=== PATIENT | male | born 1955 | race Caucasian/White ===

== ENCOUNTER 2019-11-20 03:50 | Emergency (ER) | payer OTHER ==
[~2019-11-20] VITALS: Ht 162.6 cm; Wt 74.8 kg
[~2019-11-20 03:50] MED LIST: Vistaril50 MG PO
== END 2019-11-20 04:01 | disposition home or self-care (01) ==
LOC: ER 03:50
DX: F22 Delusional disorders (principal)
CPT/HCPCS: 99283

== ENCOUNTER 2019-11-20 07:27 | Observation (INO) | payer OTHER ==
[~2019-11-20] VITALS: Ht 182.9 cm; Wt 68.0 kg
[2019-11-20 08:13] LABS: BASOPHILS ABSOLUTE AUTO 0.06 K/mm3 (0.00-0.23); BASOPHILS PERCENT AUTO 1 % (0-2); EOSINOPHILS ABSOLUTE AUTO 0.03 K/mm3 (0.00-0.68); EOSINOPHILS PERCENT AUTO 0 % (0-6); Hematocrit 42.8 % (37.0-53.0); Hemoglobin 14.4 g/dL (13.5-17.5); IMMATURE GRAN ABSOLUTE AUTO 0.04 K/mm3 (0.00-0.10); IMMATURE GRAN PERCENT AUTO 0 % (0-1); LYMPHOCYTES ABSOLUTE AUTO 2.51 K/mm3 (0.84-5.20); LYMPHOCYTES PERCENT AUTO 20 % (21-46); MONOCYTES ABSOLUTE AUTO 1.17 K/mm3 (0.16-1.47); MONOCYTES PERCENT AUTO 9 % (4-13); Mean Corpuscular HGB 31.4 pg (26.0-34.0); Mean Corpuscular HGB Conc 33.6 g/dL (31.5-36.5); Mean Corpuscular Volume 93 fL (80-100); NEUTROPHILS ABSOLUTE AUTO 8.66 K/mm3 (1.96-9.15); NEUTROPHILS PERCENT AUTO 70 % (41-73); Platelet Count 212 K/mm3 (150-400); RDW Coefficient Variation 12.2 % (11.7-14.2); RDW Standard Deviation 42.2 fL (35.1-46.3); Red Blood Cell Count 4.59 M/mm3 (4.30-5.90); White Blood Cell Count 12.47 K/mm3 (4.00-11.30)
[2019-11-20 08:33] LABS: Salicylate <1.7 mg/dL (2.8-20.0)
[2019-11-20 08:34] LABS: Alanine Aminotransfer (ALT/SGP 41 U/L (12-78); Albumin, Blood 4.6 g/dL (3.4-5.0); Albumin/Globulin Ratio 1.4 (0.8-1.8); Alk Phos 99 U/L (50-136); Anion Gap 10 mmol/L (6-16); Aspartate Aminotrans (AST/SGOT 62 U/L (12-37); Bilirubin, Total 1.1 mg/dL (0.1-1.0); Blood Urea Nitrogen 14 mg/dL (8-24); Bun/Creatinine Ratio 15.7 (12.0-20.0); CO2, Blood 24 mmol/L (21-32); Calcium, Blood 9.1 mg/dL (8.5-10.1); Chloride, Blood 101 mmol/L (98-108); Creatinine, Blood 0.89 mg/dL (0.60-1.20); Globulin, Blood 3.2 g/dL (2.2-4.0); Glomerular Filtration Rate >60 (60-); Glucose, Blood 114 mg/dL (70-99); Potassium, Blood 3.8 mmol/L (3.5-5.5); Sodium, Blood 135 mmol/L (136-145); Total Protein, Blood 7.8 g/dL (6.4-8.2)
[2019-11-20 08:35] LABS: Acetaminophen, Random <2.0 ug/mL (10.0-30.0); Ethanol (Alcohol), Blood, Med <3 mg/dL
[2019-11-20 09:25] LABS: Source, Urine Clean Catch
[2019-11-20 09:33] LABS: Bilirubin, Urine Neg (Neg); Blood, Urine 1+ (Neg); Glucose Qualitative, Urine Neg (Neg); Ketones, Urine 1+ (Neg); Leukocyte Esterase, Urine Neg (Neg); Nitrite, Urine Neg (Neg); Protein, Urine Neg (Neg); Urobilinogen, Urine NORM (Normal); pH, Urine 6.5 (5.0-8.0)
[2019-11-20 09:45] LABS: U Amphetamine Screen Not Detected; U Barbituate Screen Not Detected; U Benzodiazapine Screen Not Detected; U Buprenorphine Screen Not Detected; U Cannabinoids Screen Not Detected; U Cocaine Screen Not Detected; U Methadone Screen Not Detected; U Methamphetamine Screen Not Detected; U Opiates Screen Not Detected; U Oxycodone Screen Not Detected; U Phencyclidine Screen Not Detected; U Propoxyphene Screen Not Detected
[2019-11-20 09:47] LABS: Appearance, Urine Clear (Clear); Color, Urine Yellow (P-Yellow)
[2019-11-20 09:52] LABS: Red Blood Cells, Urine 0-2 /hpf (0-2); Squamous Epithelial Cells Rare /hpf (Few); White Blood Cells, Urine 0-2 /hpf (0-5)
[2019-11-20 09:53] LABS: Bacteria Few /hpf
== END 2019-11-23 09:00 | disposition home or self-care (01) ==
LOC: ER 07:27 → EOR 07:59
PROVIDERS: ADMIT Emergency Medicine
DX: F20.0 Paranoid schizophrenia (principal); R45.851 Suicidal ideations; F41.9 Anxiety disorder, unspecified; I10 Essential (primary) hypertension
CPT/HCPCS: 36415; 70450; 80053; 81001; 85025; 96372; 99285-25; G0378; G0480; J1630; J2060; Q3014; U0003

== ENCOUNTER 2020-11-11 20:37 | Emergency (ER) | payer OTHER ==
[~2020-11-11] VITALS: Ht 177.8 cm; Wt 81.7 kg
[2020-11-11 22:58] LABS: Source, Urine Catheter
[2020-11-11 23:05] LABS: Bilirubin, Urine Neg (Neg); Blood, Urine Neg (Neg); Glucose Qualitative, Urine Neg (Neg); Ketones, Urine 3+ (Neg); Leukocyte Esterase, Urine Neg (Neg); Nitrite, Urine Neg (Neg); Protein, Urine Neg (Neg); Specific Gravity, Urine 1.015 (1.003-1.022); Urobilinogen, Urine NORM (Normal)
[2020-11-11 23:06] LABS: BASOPHILS ABSOLUTE AUTO 0.09 K/mm3 (0.00-0.23); BASOPHILS PERCENT AUTO 1 % (0-2); EOSINOPHILS ABSOLUTE AUTO 0.02 K/mm3 (0.00-0.68); EOSINOPHILS PERCENT AUTO 0 % (0-6); Hematocrit 43.2 % (37.0-53.0); Hemoglobin 14.5 g/dL (13.5-17.5); IMMATURE GRAN ABSOLUTE AUTO 0.04 K/mm3 (0.00-0.10); IMMATURE GRAN PERCENT AUTO 0 % (0-1); LYMPHOCYTES ABSOLUTE AUTO 2.52 K/mm3 (0.84-5.20); LYMPHOCYTES PERCENT AUTO 23 % (21-46); MONOCYTES ABSOLUTE AUTO 1.01 K/mm3 (0.16-1.47); MONOCYTES PERCENT AUTO 9 % (4-13); Mean Corpuscular HGB 31.7 pg (26.0-34.0); Mean Corpuscular HGB Conc 33.6 g/dL (31.5-36.5); Mean Corpuscular Volume 94 fL (80-100); Mean Platelet Volume 10.9 fL (9.1-12.4); NEUTROPHILS ABSOLUTE AUTO 7.49 K/mm3 (1.96-9.15); NEUTROPHILS PERCENT AUTO 67 % (41-73); Platelet Count 237 K/mm3 (150-400); RDW Coefficient Variation 12.4 % (11.7-14.2); Red Blood Cell Count 4.58 M/mm3 (4.30-5.90); White Blood Cell Count 11.17 K/mm3 (4.00-11.30)
[2020-11-11 23:11] LABS: Appearance, Urine Clear (Clear); Color, Urine Yellow (P-Yellow)
[2020-11-11 23:17] LABS: Alanine Aminotransfer (ALT/SGP 33 U/L (12-78); Albumin, Blood 4.3 g/dL (3.4-5.0); Albumin/Globulin Ratio 1.5 (0.8-1.8); Alk Phos 101 U/L (50-136); Anion Gap 9 mmol/L (6-16); Aspartate Aminotrans (AST/SGOT 39 U/L (12-37); Bilirubin, Total 1.4 mg/dL (0.1-1.0); Blood Urea Nitrogen 26 mg/dL (8-24); Bun/Creatinine Ratio 21.1 (12.0-20.0); CO2, Blood 24 mmol/L (21-32); Calcium, Blood 9.1 mg/dL (8.5-10.1); Chloride, Blood 99 mmol/L (98-108); Creatinine, Blood 1.23 mg/dL (0.60-1.20); Ethanol (Alcohol), Blood, Med <3 mg/dL; Globulin, Blood 2.9 g/dL (2.2-4.0); Glomerular Filtration Rate >60 (60-); Glucose, Blood 85 mg/dL (70-99); Potassium, Blood 4.3 mmol/L (3.5-5.5); Salicylate <1.7 mg/dL (2.8-20.0); Sodium, Blood 132 mmol/L (136-145); Total Protein, Blood 7.2 g/dL (6.4-8.2)
[2020-11-11 23:20] LABS: U Amphetamine Screen Not Detected; U Barbituate Screen Not Detected; U Benzodiazapine Screen Not Detected; U Buprenorphine Screen Not Detected; U Cannabinoids Screen Not Detected; U Cocaine Screen Not Detected; U Methadone Screen Not Detected; U Methamphetamine Screen Not Detected; U Opiates Screen Not Detected; U Oxycodone Screen Not Detected; U Phencyclidine Screen Not Detected; U Propoxyphene Screen Not Detected
[2020-11-11 23:33] LABS: Acetaminophen, Random <2.0 ug/mL (10.0-30.0)
== END 2020-11-12 04:59 | disposition home or self-care (01) ==
LOC: ER 20:37
PROVIDERS: Emergency Medicine
DX: R46.2 Strange and inexplicable behavior (principal); I10 Essential (primary) hypertension; E11.9 Type 2 diabetes mellitus without complications
CPT/HCPCS: 70450; 80053; 81003; 85025; 99285-25; A9270; G0480; Q3014

== ENCOUNTER 2020-11-12 12:13 | Emergency (ER) | payer OTHER ==
[~2020-11-12] VITALS: Ht 177.8 cm; Wt 72.6 kg
== END 2020-11-12 14:04 | disposition home or self-care (01) ==
LOC: ER 12:13
DX: R45.1 Restlessness and agitation (principal); I10 Essential (primary) hypertension; E11.9 Type 2 diabetes mellitus without complications; Z86.59 Personal history of other mental and behavioral disorders
CPT/HCPCS: 99285

== ENCOUNTER 2020-11-15 15:45 | Observation (INO) | payer OTHER ==
[~2020-11-15] VITALS: Ht 167.6 cm; Wt 68.0 kg
[2020-11-15 16:14] LABS: BASOPHILS ABSOLUTE AUTO 0.03 K/mm3 (0.00-0.23); BASOPHILS PERCENT AUTO 0 % (0-2); EOSINOPHILS ABSOLUTE AUTO 0.01 K/mm3 (0.00-0.68); EOSINOPHILS PERCENT AUTO 0 % (0-6); Hematocrit 46.4 % (37.0-53.0); Hemoglobin 15.4 g/dL (13.5-17.5); IMMATURE GRAN ABSOLUTE AUTO 0.04 K/mm3 (0.00-0.10); IMMATURE GRAN PERCENT AUTO 0 % (0-1); LYMPHOCYTES ABSOLUTE AUTO 1.57 K/mm3 (0.84-5.20); LYMPHOCYTES PERCENT AUTO 14 % (21-46); MONOCYTES ABSOLUTE AUTO 1.08 K/mm3 (0.16-1.47); MONOCYTES PERCENT AUTO 10 % (4-13); Mean Corpuscular HGB Conc 33.2 g/dL (31.5-36.5); Mean Corpuscular Volume 94 fL (80-100); Mean Platelet Volume 10.7 fL (9.1-12.4); NEUTROPHILS ABSOLUTE AUTO 8.28 K/mm3 (1.96-9.15); NEUTROPHILS PERCENT AUTO 75 % (41-73); Platelet Count 235 K/mm3 (150-400); RDW Coefficient Variation 12.7 % (11.7-14.2); RDW Standard Deviation 43.5 fL (35.1-46.3); Red Blood Cell Count 4.96 M/mm3 (4.30-5.90); White Blood Cell Count 11.01 K/mm3 (4.00-11.30)
[2020-11-15 16:45] LABS: Alanine Aminotransfer (ALT/SGP 46 U/L (12-78); Albumin, Blood 4.5 g/dL (3.4-5.0); Albumin/Globulin Ratio 1.3 (0.8-1.8); Alk Phos 101 U/L (50-136); Anion Gap 8 mmol/L (6-16); Aspartate Aminotrans (AST/SGOT 75 U/L (12-37); Bilirubin, Total 1.4 mg/dL (0.1-1.0); Blood Urea Nitrogen 44 mg/dL (8-24); Bun/Creatinine Ratio 43.6 (12.0-20.0); CO2, Blood 27 mmol/L (21-32); Chloride, Blood 108 mmol/L (98-108); Creatinine, Blood 1.01 mg/dL (0.60-1.20); Globulin, Blood 3.4 g/dL (2.2-4.0); Glomerular Filtration Rate >60 (60-); Glucose, Blood 110 mg/dL (70-99); Magnesium, Blood 2.2 mg/dL (1.6-2.4); Potassium, Blood 4.2 mmol/L (3.5-5.5); Sodium, Blood 143 mmol/L (136-145); Total Protein, Blood 7.9 g/dL (6.4-8.2)
[2020-11-15 18:10] LABS: Ethanol (Alcohol), Blood, Med <3 mg/dL; Free Thyroxine 1.19 ng/dL (0.70-1.60); Salicylate <1.7 mg/dL (2.8-20.0)
[2020-11-15 18:13] LABS: Thyroid Stimulating Hormone 0.904 uIU/mL (0.360-4.800)
[2020-11-15 18:18] LABS: Acetaminophen, Random <2.0 ug/mL (10.0-30.0)
[2020-11-15 18:30] LABS: Source, Urine Clean Catch
[2020-11-15 18:35] LABS: Bilirubin, Urine Neg (Neg); Blood, Urine 2+ (Neg); Glucose Qualitative, Urine Neg (Neg); Ketones, Urine 3+ (Neg); Leukocyte Esterase, Urine Neg (Neg); Nitrite, Urine Neg (Neg); Protein, Urine 2+ (Neg); Specific Gravity, Urine 1.025 (1.003-1.022); Urobilinogen, Urine 1+ (Normal)
[2020-11-15 18:54] LABS: Color, Urine Yellow (P-Yellow)
[2020-11-15 18:55] LABS: Appearance, Urine Hazy (Clear)
[2020-11-15 18:57] LABS: Bacteria Many /hpf; Red Blood Cells, Urine 0-2 /hpf (0-2); Squamous Epithelial Cells Rare /hpf (Few)
[2020-11-15 18:58] LABS: U Amphetamine Screen Not Detected; U Barbituate Screen Not Detected; U Benzodiazapine Screen DETECTED; U Buprenorphine Screen Not Detected; U Cannabinoids Screen Not Detected; U Cocaine Screen Not Detected; U Methadone Screen Not Detected; U Methamphetamine Screen Not Detected; U Opiates Screen Not Detected; U Oxycodone Screen Not Detected; U Phencyclidine Screen Not Detected; U Propoxyphene Screen Not Detected
[2020-11-16 07:03] LABS: SARS-Cov-2 (COVID-19) PCR, MMC NEGATIVE (NEGATIVE)
[2020-11-18 20:05] LABS: Calcium, Ionized (POC) 1.18 mmol/L (1.10-1.46); Chloride (POC) 97 mmol/L (98-108); Glucose (ISTAT POC) 149 mg/dL (70-99); Hemoglobin (POC) 16.3 g/dL (13.5-17.5); Potassium (POC) 3.9 mmol/L (3.5-5.5); Sodium (POC) 137 mmol/L (135-148); Total CO2 (POC) 31 mmol/L (21-32)
== END 2020-11-26 16:22 | disposition home or self-care (01) ==
LOC: ER 15:45 → EOR 15:46
PROVIDERS: ADMIT Emergency Medicine
DX: F20.2 Catatonic schizophrenia (principal); I10 Essential (primary) hypertension; E11.9 Type 2 diabetes mellitus without complications; F41.9 Anxiety disorder, unspecified; Z20.822 Contact with and (suspected) exposure to COVID-19
CPT/HCPCS: 70450; 80047; 80053; 81001; 82947; 83735; 84439; 84443; 85014; 85025; 87086; 96372; 96374; 99285-25; A9270; G0378; G0480; J2060; J7030; Q3014; U0004

== ENCOUNTER 2020-12-01 18:42 | Emergency (ER) | payer OTHER ==
[~2020-12-01] VITALS: Ht 172.7 cm; Wt 68.0 kg
[2020-12-01 20:22] LABS: BASOPHILS ABSOLUTE AUTO 0.09 K/mm3 (0.00-0.23); BASOPHILS PERCENT AUTO 1 % (0-2); EOSINOPHILS ABSOLUTE AUTO 0.04 K/mm3 (0.00-0.68); EOSINOPHILS PERCENT AUTO 1 % (0-6); Hematocrit 41.4 % (37.0-53.0); Hemoglobin 13.8 g/dL (13.5-17.5); IMMATURE GRAN ABSOLUTE AUTO 0.03 K/mm3 (0.00-0.10); IMMATURE GRAN PERCENT AUTO 0 % (0-1); LYMPHOCYTES ABSOLUTE AUTO 2.06 K/mm3 (0.84-5.20); LYMPHOCYTES PERCENT AUTO 25 % (21-46); MONOCYTES ABSOLUTE AUTO 0.72 K/mm3 (0.16-1.47); MONOCYTES PERCENT AUTO 9 % (4-13); Mean Corpuscular HGB 31.4 pg (26.0-34.0); Mean Corpuscular HGB Conc 33.3 g/dL (31.5-36.5); Mean Corpuscular Volume 94 fL (80-100); Mean Platelet Volume 9.7 fL (9.1-12.4); NEUTROPHILS ABSOLUTE AUTO 5.26 K/mm3 (1.96-9.15); NEUTROPHILS PERCENT AUTO 64 % (41-73); Platelet Count 272 K/mm3 (150-400); RDW Coefficient Variation 12.5 % (11.7-14.2); RDW Standard Deviation 43.1 fL (35.1-46.3); Red Blood Cell Count 4.39 M/mm3 (4.30-5.90)
[2020-12-01 20:41] LABS: Alanine Aminotransfer (ALT/SGP 31 U/L (12-78); Albumin, Blood 4.2 g/dL (3.4-5.0); Albumin/Globulin Ratio 1.4 (0.8-1.8); Alk Phos 101 U/L (50-136); Anion Gap 9 mmol/L (6-16); Aspartate Aminotrans (AST/SGOT 35 U/L (12-37); Bilirubin, Total 1.2 mg/dL (0.1-1.0); Blood Urea Nitrogen 21 mg/dL (8-24); Bun/Creatinine Ratio 18.9 (12.0-20.0); CO2, Blood 26 mmol/L (21-32); Calcium, Blood 9.6 mg/dL (8.5-10.1); Chloride, Blood 102 mmol/L (98-108); Creatinine, Blood 1.11 mg/dL (0.60-1.20); Glomerular Filtration Rate >60 (60-); Glucose, Blood 92 mg/dL (70-99); Sodium, Blood 137 mmol/L (136-145); Total Protein, Blood 7.2 g/dL (6.4-8.2)
[2020-12-01 23:09] LABS: Source, Urine Voided
[2020-12-01 23:11] LABS: Appearance, Urine Clear (Clear); Blood, Urine 1+ (Neg); Color, Urine Amber (P-Yellow); Glucose Qualitative, Urine Neg (Neg); Ketones, Urine 4+ (Neg); Leukocyte Esterase, Urine 1+ (Neg); Nitrite, Urine Neg (Neg); Protein, Urine 1+ (Neg); Specific Gravity, Urine 1.025 (1.003-1.022); Urobilinogen, Urine 2+ (Normal)
[2020-12-01 23:18] LABS: Bilirubin, Urine 1+ (Neg); Red Blood Cells, Urine 0-2 /hpf (0-2)
[2020-12-01 23:19] LABS: Bacteria Many /hpf; Hyaline Casts 0-2 /lpf (0-2); Mucus Heavy (0-Heavy); Squamous Epithelial Cells Not Seen /hpf (Few)
== END 2020-12-02 03:20 | disposition home or self-care (01) ==
LOC: ER 18:42
PROVIDERS: Emergency Medicine
DX: E86.0 Dehydration (principal); R41.0 Disorientation, unspecified; E11.9 Type 2 diabetes mellitus without complications; I10 Essential (primary) hypertension
CPT/HCPCS: 36415; 80053; 81001; 85025; 96374; 99284-25; J2060; J7030

== ENCOUNTER 2020-12-10 16:24 | Emergency (ER) | payer OTHER ==
[~2020-12-10] VITALS: Ht 172.7 cm; Wt 68.0 kg
[2020-12-10] MEDS ORDERED: BACTRIM DS TAB1 EAC1 PO (17:31)
== END 2020-12-10 17:52 | disposition home or self-care (01) ==
LOC: ER 16:24
DX: L03.012 Cellulitis of left finger (principal); E11.9 Type 2 diabetes mellitus without complications; I10 Essential (primary) hypertension; Z87.891 Personal history of nicotine dependence
CPT/HCPCS: 26010; 99282-25

== ENCOUNTER 2024-01-30 19:16 | Inpatient (IN) | payer OTHER ==
[~2024-01-30] VITALS: Ht 172.7 cm; Wt 72.7 kg
[~2024-01-30 19:16] MED LIST changes: +BACTRIM DS TAB1 EAC1 PO
[2024-01-30] MEDS ORDERED: QUETIAPINE FUMA25 MG PO (19:58)
[2024-01-30 20:05] LABS: BASOPHILS ABSOLUTE AUTO 0.06 K/mm3 (0.00-0.23); BASOPHILS PERCENT AUTO 1 % (0-2); EOSINOPHILS ABSOLUTE AUTO 0.01 K/mm3 (0.00-0.68); EOSINOPHILS PERCENT AUTO 0 % (0-6); Hematocrit 48.7 % (37.0-53.0); Hemoglobin 16.2 g/dL (13.5-17.5); IMMATURE GRAN ABSOLUTE AUTO 0.06 K/mm3 (0.00-0.10); IMMATURE GRAN PERCENT AUTO 1 % (0-1); LYMPHOCYTES ABSOLUTE AUTO 1.55 K/mm3 (0.84-5.20); LYMPHOCYTES PERCENT AUTO 12 % (21-46); MONOCYTES PERCENT AUTO 8 % (4-13); Mean Corpuscular HGB 31.8 pg (26.0-34.0); Mean Corpuscular HGB Conc 33.3 g/dL (31.5-36.5); Mean Corpuscular Volume 96 fL (80-100); Mean Platelet Volume 10.1 fL (9.1-12.4); NEUTROPHILS ABSOLUTE AUTO 10.29 K/mm3 (1.96-9.15); NEUTROPHILS PERCENT AUTO 79 % (41-73); Platelet Count 226 K/mm3 (150-400); RDW Coefficient Variation 12.5 % (11.7-14.2); RDW Standard Deviation 44.3 fL (35.1-46.3); Red Blood Cell Count 5.09 M/mm3 (4.30-5.90); White Blood Cell Count 12.97 K/mm3 (4.00-11.30)
[2024-01-30 20:21] LABS: Base Excess Venous -5.1 mmol/L; Bicarbonate Venous 23.2 mmol/L (24.0-30.0); pH Blood Venous 7.38 (7.34-7.37)
[2024-01-30 20:28] LABS: Ethanol (Alcohol), Blood, Med <3 mg/dL; Salicylate <1.7 mg/dL (2.8-20.0)
[2024-01-30 20:36] LABS: Acetaminophen, Random <2.0 ug/mL (10.0-30.0); Alanine Aminotransfer (ALT/SGP 30 U/L (12-78); Albumin, Blood 4.2 g/dL (3.4-5.0); Albumin/Globulin Ratio 1.2 (0.8-1.8); Alk Phos 110 U/L (50-136); Anion Gap 15 mmol/L (3-11); Aspartate Aminotrans (AST/SGOT 29 U/L (12-37); Bilirubin, Total 0.9 mg/dL (0.1-1.0); Blood Urea Nitrogen 29 mg/dL (8-24); CO2, Blood 22 mmol/L (21-32); Calcium, Blood 9.4 mg/dL (8.5-10.1); Chloride, Blood 106 mmol/L (98-108); Creatinine, Blood 1.21 mg/dL (0.60-1.20); Globulin, Blood 3.4 g/dL (2.2-4.0); Glomerular Filtration Rate 66 (60-); Glucose, Blood 113 mg/dL (70-99); Potassium, Blood 4.8 mmol/L (3.5-5.5); Sodium, Blood 138 mmol/L (136-145); Total Protein, Blood 7.6 g/dL (6.4-8.2)
[2024-01-30] MEDS ORDERED: NS 1,000 ML IV SCH ×2 (21:10→23:45)
[2024-01-30] MEDS ORDERED: Ondansetron HCl 2 MG / ML 2ML Vial IV PRN (23:40)
[2024-01-31] MEDS ORDERED: Enoxaparin 40 MG/0.4 ML SYR SC SCH
[2024-01-31 00:32] LABS: U Amphetamine Screen Not Detected; U Barbituate Screen Not Detected; U Benzodiazapine Screen Not Detected; U Buprenorphine Screen Not Detected; U Cannabinoids Screen Not Detected; U Cocaine Screen Not Detected; U Methadone Screen Not Detected; U Methamphetamine Screen Not Detected; U Opiates Screen Not Detected; U Oxycodone Screen Not Detected; U Phencyclidine Screen Not Detected
[2024-01-31 05:58] LABS: BASOPHILS ABSOLUTE AUTO 0.08 K/mm3 (0.00-0.23); BASOPHILS PERCENT AUTO 1 % (0-2); EOSINOPHILS ABSOLUTE AUTO 0.05 K/mm3 (0.00-0.68); EOSINOPHILS PERCENT AUTO 0 % (0-6); Hemoglobin 15.3 g/dL (13.5-17.5); IMMATURE GRAN ABSOLUTE AUTO 0.05 K/mm3 (0.00-0.10); IMMATURE GRAN PERCENT AUTO 0 % (0-1); LYMPHOCYTES ABSOLUTE AUTO 2.36 K/mm3 (0.84-5.20); LYMPHOCYTES PERCENT AUTO 20 % (21-46); MONOCYTES ABSOLUTE AUTO 1.13 K/mm3 (0.16-1.47); MONOCYTES PERCENT AUTO 10 % (4-13); Mean Corpuscular HGB 31.5 pg (26.0-34.0); Mean Corpuscular HGB Conc 33.3 g/dL (31.5-36.5); Mean Corpuscular Volume 95 fL (80-100); Mean Platelet Volume 10.3 fL (9.1-12.4); NEUTROPHILS ABSOLUTE AUTO 8.11 K/mm3 (1.96-9.15); NEUTROPHILS PERCENT AUTO 69 % (41-73); Platelet Count 222 K/mm3 (150-400); RDW Coefficient Variation 12.7 % (11.7-14.2); RDW Standard Deviation 44.2 fL (35.1-46.3); Red Blood Cell Count 4.85 M/mm3 (4.30-5.90); White Blood Cell Count 11.78 K/mm3 (4.00-11.30)
[2024-01-31 06:29] LABS: Albumin, Blood 3.7 g/dL (3.4-5.0); Albumin/Globulin Ratio 1.1 (0.8-1.8); Bilirubin, Total 1.2 mg/dL (0.1-1.0); Bun/Creatinine Ratio 29.2 (12.0-20.0); Calcium, Blood 9.1 mg/dL (8.5-10.1); Creatinine, Blood 0.93 mg/dL (0.60-1.20); Free Thyroxine 1.08 ng/dL (0.70-1.60); Globulin, Blood 3.3 g/dL (2.2-4.0); Potassium, Blood 4.4 mmol/L (3.5-5.5)
[2024-01-31] MEDS ORDERED: OLANZapine 10 MG Vial IM ONE (06:50)
[2024-01-31] MEDS ORDERED: Insulin Human Lispro 100 Units/ML 3ML Syringe SC SCH (07:30)
[2024-01-31 09:34] LABS: Source, Urine Straight Cath
[2024-01-31 09:42] LABS: Appearance, Urine Clear (Clear); Bilirubin, Urine Neg (Neg); Blood, Urine Neg (Neg); Color, Urine Yellow (P-Yellow); Glucose Qualitative, Urine Neg (Neg); Ketones, Urine 4+ (Neg); Leukocyte Esterase, Urine Neg (Neg); Nitrite, Urine Neg (Neg); Protein, Urine 2+ (Neg); Specific Gravity, Urine 1.025 (1.003-1.022); Urobilinogen, Urine NORM (Normal)
[2024-01-31 09:50] LABS: Bacteria Rare /hpf; Mucus Light (0-Heavy); Red Blood Cells, Urine 0-2 /hpf (0-2); Squamous Epithelial Cells Not Seen /hpf (Few)
[2024-01-31 16:10] VITALS: BP 154/90
--- NOTE | 2024-01-31 18:04 | NUR ---
THIS NURSE SPOKE TO POISON CONTROL AND PROVIDED UPDATE.
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
[2024-01-31 19:49] VITALS: BP 153/95
[2024-01-31] MEDS ORDERED: NS 1,000 ML IV SCH (19:50)
[2024-01-31] MEDS ORDERED: Ketorolac Tromethamine 15mg Vial IV PRN (19:55)
[2024-02-01 03:44] VITALS: BP 144/92
[2024-02-01] MEDS ORDERED: LORazepam 2 MG/ML 1ML Injection IV ONE ×4 (04:40→14:50)
--- NOTE | 2024-02-01 05:26 | NUR ---
Called hospitalist, s/s of catatonia -> ativan Pt appeared catatonic displaying mutism, posturing, staring, immobility and diaphoresis. His arms were postured up at 90 degree angles while lying supine and his eyes were open and staring. He was mostly unresponsive to questions and commands. I called the hospitalist who ordered a 1 time dose of 0.5 mg IV Ativan. 10 minutes after administration pt's eyes are closed, arms are relaxed and his overall appearance is much more relaxed than before.
--- NOTE | 2024-02-01 06:20 | NUR ---
SHIFT SUMMARY: PATIENT UNCOOPERATIVE, EYES NOT FOCUSING ON A TARGET, NOT RESPONDING TO REQUESTS OR QUESTIONS. 14F CRUZ CATHETER INSERTED R/T ACUTE URINARY RETENTION. NORMAL SALINE GIVEN AT 75ML/HR. PATIENT NPO UNTIL FURTHER NOTICE. ATIVAN IV GIVEN FOR CATATONIA, KETOROLAC GIVEN FOR PAIN: PATIENT WENT FROM FLEXION TO RELAXATION, ABLE TO TALK IN COMPLETE SENTENCES. 1:1 SITTER FOR SUICIDE PRECAUTION.
[2024-02-01 07:48] VITALS: BP 146/85
[2024-02-01 17:28] VITALS: BP 166/91
--- NOTE | 2024-02-01 18:05 | NUR ---
SHIFT SUMMARY PT ABLE TO VERBALIZE HIS NAME, BUT UNABLE TO ANSWER OTHER ASSESSMENT QUESTIONS APPROPRIATELY. PT ABLE TO MAKE EYE CONTACT AND FIXATES ON OBJECTS IN THE ROOM. PT SPEAKING IN COMPLETE SENTENCES, BUT HAS FLIGHT OF IDEAS AND PARANOIA. 1:1 SITTER AT BEDSIDE. ROUNDED ON PT THIS AM. MRI ORDERED, BUT UNSUCCESSFUL DUE TO PT INABILITY TO LAY DOWN AND COOPERATE DESPITE ADMINISTRATION OF ATIVAN. NS CONT TO INFUSE @ 75 MLS/HR. CRUZ CATH REMAINS IN PLACE. NO OTHER CHANGES THIS SHIFT.
[2024-02-01 19:30] VITALS: BP 149/104
[2024-02-01] MEDS ORDERED: LORazepam 0.5 MG Tab PO ONE (23:00)
--- NOTE | 2024-02-02 01:40 | NUR ---
SHIFT SUMMARY: PT RESPONSE TO ORIENTATION/ASSESMENT QUESTIONS NONSENSICAL. PT HYPERVERBAL WITH A FIXATION ON INFECTION, ANTIBIOTICS, DINOSAURS, GIANTS AND OTHER FLIGHT OF IDEAS DIFFICULT TO NEUROLOGICALLY REDIRECT. PT RESLTESS GETTING OUT OF BED 1:1 SITTER AT BEDSIDE TO ENSURE SAFETY. PT FOLLOWS DIRECTIONS OCCASIONALLY AGREEABLE TO PHYSICAL REDIRECTION HOWEVER MENTATION REMAINS THE SAME. 2300 PT ATTEMPT TO BOLT WHILE STANDING A FEW FEET TUGGING ON IV LINES, CRUZ CATHETER AND TELEMETRY BOX CRASHING TO FLOOR. ATIVAN ADMIN. PT STRICT NPO NOT ABLE TO TOLERATE PO MEDS. POISON COLTROL UPDATED VIA TELEPHONE. NO S/S OF DISTRESS REGARDING FUNCTIONAL BODY SYSTEMS. NEUROLOGY AND PSYCH CONSULTS.
[2024-02-02] MEDS ORDERED: OLANZapine 10 MG Vial IM ONE (06:25)
--- NOTE | 2024-02-02 06:49 | NUR ---
SHIFT SUMMARY: PT AGITATED PULLING LINES ATTEMPTING TO HIT STAFF NOT REDIRECTABLE. ZYPREXA IM AND SOFT RESTRAINTS INITIATED. 0640 RESTRAINTS APPLIED. SECURITY CALLED TO ASSIST IN DEESCALATION.
[2024-02-02 07:39] VITALS: BP 118/96
[2024-02-02 15:53] VITALS: BP 134/97
--- NOTE | 2024-02-02 17:30 | NUR ---
SHIFT SUMMARY: PATIENT HAS BEEN ALERT AND COMMUNICATING WITH STAFF; A&OX3/SBA ASSIST. ENCOURAGING PATIENT TO PERFORM OWN CARE. PATIENT HAS BEEN PLEASANT AND COOPERATIVE. HE HAS BEEN HYPERVERBAL; WILL REPEAT STATEMENTS HE HAS ALREADY SHARED. HE HAS BEEN EATING AND DRINKING, HE IS ABLE TO AMBULATE TO THE BEDSIDE CHAIR AND AROUND HIS ROOM. HIS IV, TELE, AND CRUZ WERE REMOVED AFTER SPEAKING WITH AND DR. DELANEY. PLAN IS FOR PATIENT TO GO TO THE [facility] TOMORROW AFTER DR. DELANEY COMES AND EVALUATES THE PATIENT AGAIN. PATIENT IS CURRENT WALKING ABOUT HIS ROOM, SITTER PRESENT, NO SIGNS OR SYMPTOMS OF DISTRESS, PLAN OF CARE.
[2024-02-02 20:23] VITALS: BP 128/85
[2024-02-02 23:59] VITALS: BP 113/68
[2024-02-03 05:57] VITALS: BP 141/97
--- NOTE | 2024-02-03 06:57 | NUR ---
ASKING SI ASSESSMENT QUESTIONS ARE TRIGGER TO PATIENT. HE DOESN'T ANSWER QUESTIONS DIRECTLY WILL GO AROUND QUESTIONS AND FIXATE ON OTHER ISSUES SUCH HIS PEEING AND WILL PHYSICALLY SHUT DOWN TO QUESTIONING.
[2024-02-03 07:53] VITALS: BP 143/96
--- NOTE | 2024-02-03 08:03 | NUR ---
ASKING SI QUESTIONS TO PATIENT IS TRIGGERING AND INVOKES A NEGATIVE EMOTIONAL AND EVEN AT TIMES PHYSICAL RESPONSE FROM PATIENT; TREMORING AND MAKING OBSCURE REMARKS.
--- NOTE | 2024-02-03 12:07 | NUR ---
ANA LILIA FROM POISON CONTROL CALLED AT 1014 FOR UPDATE ON PATIENT; DUE TO [facility]'S MEDICAL STABILITY THEY ARE CLOSING THE CASE.
[2024-02-03 14:53] VITALS: BP 121/81
[2024-02-03 14:56] LABS: SARS-Cov-2 (COVID-19) PCR, MMC NEGATIVE (NEGATIVE)
--- NOTE | 2024-02-03 16:32 | NUR ---
SHIFT SUMMARY: PT HAS BEEN ALERT/ORIENTED, PLEASANT/COOPERATIVE, AMBULATORY, TAKING CARE OF OWN NEEDS. HE HAS BEEN VOIDING WELL SINCE HIS CRUZ WAS REMOVED, EATING, AND DRINKING. HE HAS BEEN SOMEWHAT ANXIOUS ABOUT BHU TRANSFER, BUT EAGER. HE HAS BEEN PACING UP AND DOWN THE PLAZA. HYPERFIXATES ON THINGS. HE IS CURRENTLY IN HIS ROOM; 1:1 SITTER PRESENT, AWAITING FOR BHU TRANSFER, NO SIGNS OR SYMPTOMS OF DISTRESS, PLAN OF CARE ONGOING.
--- NOTE | 2024-02-03 19:07 | NUR ---
REPORT ON PATIENT GIVEN TO WILIAM SNOW AT [facility].
[2024-02-03 19:13] VITALS: BP 141/89
--- NOTE | 2024-02-03 23:13 | NUR ---
TRANSFER SUMMARY PATIENT TRANSFERED TO [facility] AT 2323IN WHEELCHAIR PATIENT APPEARS CALM, RESPONSIVE AND ABLE TO ANSWER NURSE QUESTIONS. PATIENT USED BATHROOM WAS SHOWN ALL HIS BELONGINGS AND AGREED EVERYTHING WAS THERE. BP WAS TAKEN AT 2300 BP 130/80 PULSE 74 TEMP 99.4 PULSE OX 99. PATIENT TRANSFERED BY STAFF MORRIS AT [facility].
== END 2024-02-03 22:47 | disposition home or self-care (01) | DRG 917 ==
LOC: ER 19:16 → ERHOLD 19:17 → MEDS 01-31 16:01
PROVIDERS: Emergency Medicine; Internal Medicine; ADMIT Internal Medicine
DX: T43.592A Poisoning by other antipsychotics and neuroleptics, intentional self-harm, initial encounter (principal); G92.8 Other toxic encephalopathy; F20.0 Paranoid schizophrenia; R33.9 Retention of urine, unspecified; E86.0 Dehydration; E11.9 Type 2 diabetes mellitus without complications; I10 Essential (primary) hypertension; F41.9 Anxiety disorder, unspecified; Z79.899 Other long term (current) drug therapy; Z87.891 Personal history of nicotine dependence
CPT/HCPCS: 51701; 51798; 70450; 80053; 81001; 82550; 82803; 82947; 83605; 83880; 84145; 84439; 84443; 85025; 93005; 93010; 96372; 96372-59; 96374; 96375; 96376; 99285-25; A9270; G0378; G0480; J1650; J1885; J2060; J7030; U0002

== ENCOUNTER 2024-02-03 22:50 | Inpatient (IN) | payer OTHER ==
[~2024-02-03 22:50] MED LIST changes: +QUETIAPINE FUMA25 MG PO
[2024-02-04 01:02] VITALS: BP 105/79
[2024-02-04 01:39] VITALS: BP 105/79
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
[2024-02-04 03:53] VITALS: BP 105/79
--- NOTE | 2024-02-04 04:15 | NUR ---
PATIENT WAS ADMITTED LATE INTO THE EVENING. HE HAD A SNACK AND WANTED TO GO TO SLEEP =2AM. 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 HE IS COMPLIANT WITH CARE. HE HAS NO MEDICATIONS CURRENTLY. NO NOTED SKIN ISSUES OR COMPLAINTS OF DISCOMFORTS. HE IS SLEEPING WITH OUT ANY ISSUES OR BEHAVIORS.
--- NOTE | 2024-02-04 05:41 | NUR ---
PATIENT CONTINUES TO SLEEP WITH OUT ANY ISSUES OR BEHAVIORS
[2024-02-04 08:36] VITALS: BP 114/81
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
[2024-02-04 10:53] LABS: CHOL/HDL RATIO 3.4; Cholesterol 203 mg/dL (50-200); HDL Cholesterol 59 mg/dL (>39); Low Density Lipoprotein Chol 118 mg/dL (0-110); Triglycerides 132 mg/dL (30-160); Very Low Density Lipoprot Chol 26 mg/dL (6-32)
--- NOTE | 2024-02-04 13:15 | NUR ---
No change from morning assessment. will continue close monitoring.
--- NOTE | 2024-02-04 16:43 | NUR ---
Patient is alert & oriented x3, continiues with suicidal ideation with no plan. No Hi or AVH. Patient with very flat affect, very focused on his father this afternoon. multiple stories all leading back to how his father disliked him.
[2024-02-04 19:50] VITALS: BP 115/79
[2024-02-04] MEDS ORDERED: Divalproex Sodium 250 MG TABCR PO SCH (21:00)
--- NOTE | 2024-02-05 05:21 | NUR ---
pATIENT CONTINUES TO SLEEP WITHOUT ANY ISSUES OR BEHAVIORS
[2024-02-05 08:22] VITALS: BP 101/75
--- NOTE | 2024-02-05 16:47 | NUR ---
Pt states that his mood is "good" and presents as euthymic with somewhat constricted affect. Pt denies SI, HI, AVH, eye contact is good. Pt denies anxiety and pain and reports that he had a BM this morning. Pt spent most of the day journaling and watching TV. He did have a visitor today and seemed somewhat distraught after the visit. Pt stated that he would like staff to wake him up at 0700 tomorrow. No PRNs given today.
[2024-02-05 20:26] VITALS: BP 117/84
--- NOTE | 2024-02-05 23:51 | NUR ---
PATIENT COMPLIANT WITH ASSESSMENT, CARE AND MEDICATIONS. HE TAKES HIS EVENING MEDS AND GOES TO BED WITHOUT ANY DIRECTION. HE HAS NO NOTED BEHAVIORS OR ISSUES
[2024-02-06 09:03] VITALS: BP 90/73
--- NOTE | 2024-02-06 18:16 | NUR ---
SHIFT SUMMARY PT AxOx4. SOMEWHAT SLOW TO RESPOND AT TIMES BUT PLEASANT AND COOPERATIVE WITH CARE. PT REPORTS FEELING GOOD TODAY, DENIES SI/AVD. PT PARTICIPATED IN GROUPS THIS SHIFT AND MINGLING PLEASANTLY WITH MILIEU. PT EDUCATION PROVIDED REGARDING NUTRITION AND DIABETES. PT STATES HIS PCP TOLD THE PATIENT THAT HE WAS PREDIABETIC AND REQUESTED RESOURCES. INVESTOR RELATIONS MANAGER CONSULT ORDERED. PT IS CURRENTLY SITTING AT DESK IN [place] STUDYING HIS INPATIENT FOLDER. DENIES ANY NEEDS AT THIS TIME. PER PROVIDER, EXPECTED DC ON 02/08/24.
[2024-02-06 20:14] VITALS: BP 111/83
--- NOTE | 2024-02-07 04:51 | NUR ---
Pt is A&O x4, calm, cooperative, eye contact is good. Pt stated that his mood is "good, but I'm sad that I let people down." Affect is constricted. Pt denies SI, HI, and AVH. He also denies current anxiety and pain. Pt stated that he had a BM today. Pt was social with staff and spent much of the evening journaling and talking to this commercial loan underwriter about his plans for after d/c. Pt has labs this morning; ammonia level, liver function, and valproic acid level.
[2024-02-07 08:40] VITALS: BP 103/77
[2024-02-07 09:40] LABS: Alanine Aminotransfer (ALT/SGP 60 U/L (12-78); Albumin, Blood 3.6 g/dL (3.4-5.0); Alk Phos 101 U/L (50-136); Aspartate Aminotrans (AST/SGOT 43 U/L (12-37); Bilirubin, Direct 0.2 mg/dL (0.0-0.3); Bilirubin, Indirect 0.3 mg/dL (0.1-0.7); Bilirubin, Total 0.5 mg/dL (0.1-1.0); Globulin, Blood 3.5 g/dL (2.2-4.0); Total Protein, Blood 7.1 g/dL (6.4-8.2); Valproic Acid 74.6 ug/mL (50.0-100.0)
[2024-02-07] MEDS ORDERED: Ibuprofen 600 MG Tab PO PRN (12:55)
--- NOTE | 2024-02-07 20:01 | NUR ---
PATIENT UP SITTING IN CHAIR AT NURSES STATION. ASK HIM HOW HE WAS DOING HE REPLIED' JUST FINE REAL GOOD' HE IS LOOKING AT HIS PAPERS IN HIS FOULDER.WILL CONTINUE TO MONITOR
[2024-02-07 20:12] VITALS: BP 112/75
[2024-02-07] MEDS ORDERED: Divalproex Sodium 500 MG TABCR PO SCH (21:00)
--- NOTE | 2024-02-08 08:52 | NUR ---
PT UP EARLY, ATE BREAKFAST AND IS DISCUSSING DISCHARGE. PT DISCUSSING LOGISTICAL STEPS HE NEEDS TO GO THROUGH TO GET MEDICATIONS AND INTO HIS APARTMENT. PT DENIES ANY SI/HI
[2024-02-08 09:26] LABS: Albumin, Blood 3.7 g/dL (3.4-5.0); Bilirubin, Total 0.4 mg/dL (0.1-1.0); Bun/Creatinine Ratio 18.4 (12.0-20.0); Calcium, Blood 9.2 mg/dL (8.5-10.1); Creatinine, Blood 0.93 mg/dL (0.60-1.20); Globulin, Blood 3.6 g/dL (2.2-4.0); Potassium, Blood 4.4 mmol/L (3.5-5.5); Total Protein, Blood 7.3 g/dL (6.4-8.2)
[2024-02-08 17:56] VITALS: BP 102/77
[2024-02-08 19:37] VITALS: BP 118/75
--- NOTE | 2024-02-09 01:28 | NUR ---
resting comfortably respirations even and unlabored. will continue close monitoring
--- NOTE | 2024-02-09 04:51 | NUR ---
Patient is alert and very focused on his discharge later today. Wanted to know the process for picking up his new prescriptions and then proceeded all of the contents of his wallet and what was needed to tack picker a prescription. No SI, HI or AVH on assessment. Sleep time so far 7.5 hours. will continue close monitoring
[2024-02-09 08:13] VITALS: BP 112/72
[2024-02-09] MEDS ORDERED: DEPAKOTE500 M1 PO (09:25)
--- NOTE | 2024-02-09 11:48 | NUR ---
DISCHARGE SUMMARY PT A/O X4; PLEASANT AND COOPERATIVE WITH CARE. PT DENIES SI, HI, AH, VS, TH. PT CAN BE FIXATED ON ASPECTS OF HIS CARE AND NEEDS A LOT OF REASSURANCE. PT IS CONCERNED ABOUT THE WHEREABOUTS OF HIS WALLET AND BEING ABLE TO GET HIS MEDICATIONS. MEDICATION ORDERS FAXED TO [facility]. DISCHARGE PAPERWORK DISCUSSED WITH PT AND PT VERBALIZED UNDERSTANDING.
--- NOTE | 2024-02-09 12:06 | NUR ---
PT'S BELONGINGS RETURNED AND PT LEFT UNIT AT 12:06.
== END 2024-02-09 12:00 | disposition home or self-care (01) | DRG 885 ==
LOC: BHU 22:50
PROVIDERS: ADMIT Student in an Organized Health Care Education/Training Program
DX: F31.75 Bipolar disorder, in partial remission, most recent episode depressed (principal); G93.49 Other encephalopathy; R33.9 Retention of urine, unspecified
CPT/HCPCS: 36415; 80053; 80061; 80076; 80164; 82140; 83036; A9270

== ENCOUNTER 2025-06-16 18:48 | Inpatient (IN) | payer OTHER ==
[~2025-06-16] VITALS: Ht 172.7 cm; Wt 77.1 kg
[~2025-06-16 18:48] MED LIST changes: +DEPAKOTE500 M1 PO; +LAMO100 PO; +LAMOTRIGINE200 MG PO; +MULVITA PO; +TAMS.4ER PO; +TRAZ50 PO
[2025-06-16 22:07] LABS: BASOPHILS ABSOLUTE AUTO 0.08 K/mm3 (0.00-0.23); BASOPHILS PERCENT AUTO 1 % (0-2); EOSINOPHILS ABSOLUTE AUTO 0.05 K/mm3 (0.00-0.68); EOSINOPHILS PERCENT AUTO 1 % (0-6); Hematocrit 41.7 % (37.0-53.0); Hemoglobin 14.0 g/dL (13.5-17.5); IMMATURE GRAN ABSOLUTE AUTO 0.04 K/mm3 (0.00-0.10); IMMATURE GRAN PERCENT AUTO 1 % (0-1); LYMPHOCYTES ABSOLUTE AUTO 2.24 K/mm3 (0.84-5.20); LYMPHOCYTES PERCENT AUTO 30 % (21-46); MONOCYTES ABSOLUTE AUTO 0.73 K/mm3 (0.16-1.47); MONOCYTES PERCENT AUTO 10 % (4-13); Mean Corpuscular HGB Conc 33.6 g/dL (31.5-36.5); Mean Corpuscular Volume 95 fL (80-100); NEUTROPHILS ABSOLUTE AUTO 4.27 K/mm3 (1.96-9.15); NEUTROPHILS PERCENT AUTO 58 % (41-73); NRBC ABSOLUTE 0.00 K/mm3 (0.00-0.02); NRBC Auto 0.0 /100 WBC (0.0-0.2); RDW Coefficient Variation 13.0 % (11.7-14.2); RDW Standard Deviation 45.9 fL (35.1-46.3)
[2025-06-16 22:09] LABS: Platelet Count 251 K/mm3 (150-400)
[2025-06-16 22:23] LABS: Alanine Aminotransfer (ALT/SGP 32.0 U/L (12-78); Albumin, Blood 4.3 g/dL (3.4-5.0); Albumin/Globulin Ratio 1.3 (0.8-1.8); Anion Gap 8.0 mmol/L (3-11); Aspartate Aminotrans (AST/SGOT 34.0 U/L (12-37); Bilirubin, Total 0.9 mg/dL (0.1-1.0); Blood Urea Nitrogen 15.0 mg/dL (8-24); CO2, Blood 28.0 mmol/L (21-32); Calcium, Blood 9.7 mg/dL (8.5-10.1); Chloride, Blood 105.0 mmol/L (98-108); Creatinine, Blood 1.05 mg/dL (0.60-1.20); Globulin, Blood 3.3 g/dL (2.2-4.0); Glucose, Blood 110.0 mg/dL (70-99); Potassium, Blood 4.9 mmol/L (3.5-5.5); Sodium, Blood 136.0 mmol/L (136-145); Total Protein, Blood 7.6 g/dL (6.4-8.2)
[2025-06-17] MEDS ORDERED: LORazepam 2 MG/ML 1ML Injection IM ONE (00:10)
[2025-06-17] MEDS ORDERED: LORazepam 2 MG/ML 1ML Injection ONE (00:14)
[2025-06-17 02:45] LABS: Source, Urine Clean Catch
[2025-06-17 02:48] LABS: Bilirubin, Urine Neg (Neg); Glucose Qualitative, Urine Neg (Neg); Ketones, Urine 2+ (Neg); Leukocyte Esterase, Urine Neg (Neg); Protein, Urine 1+ (Neg); Specific Gravity, Urine 1.015 (1.003-1.022); Urobilinogen, Urine NORM (Normal)
[2025-06-17 02:55] LABS: Color, Urine Yellow (P-Yellow)
[2025-06-17 03:08] LABS: U Amphetamine Screen Not Detected; U Barbiturate Screen Not Detected; U Benzodiazapine Screen Not Detected; U Buprenorphine Screen Not Detected; U Cannabinoids Screen Not Detected; U Cocaine Screen Not Detected; U Methadone Screen Not Detected; U Methamphetamine Screen Not Detected; U Opiates Screen Not Detected; U Oxycodone Screen Not Detected; U Phencyclidine Screen Not Detected
[2025-06-17] MEDS ORDERED: FLU VACC TS2025(65UP)/MF59C/PF 45 MCG/0.5 ML SYRINGE IM SCH (04:05)
--- NOTE | 2025-06-17 05:49 | NUR ---
RECEIVED REPORT FROM TRACEY JOSÉ, IN THE ER FOR PT COMING TO ROOM 357. AWAITING PT ARRIVAL.
[2025-06-17 06:13] VITALS: BP 126/87
--- NOTE | 2025-06-17 06:40 | NUR ---
ADMISSION NOTE PT IS A&OX4, BUT MANIAC AND HAS FLIGHT OF IDEAS. PT CAME TO ROOM 357 FROM ER VIA GURNEY AND TRANSFER VIA SLIDESHEET. PT DRESSED IN GOWN, PT CAME TO MEDICAL FLOOR WITH NO CLOTHES ON. PT KEEPS STATING "NEED TO COUGH" AND PT IS AFRAID TO PEE. PT OREINTED TO CALL LIGHT, ROOM AND STAFF. TURKEY SANDWICH AND WATER PROVIDED TO PT. PT RESTING IN BED EVEN AND UNLABORED RESPIRATIONS, BED IN THE LOWEST POSITION, AND CALL LIGHT WITHIN REACH.
[2025-06-17 07:56] VITALS: BP 141/79
[2025-06-17 08:59] LABS: Magnesium, Blood 2.2 mg/dL (1.6-2.4); Phosphorus, Blood 3.4 mg/dL (2.5-4.9); Thyroid Stimulating Hormone 2.47 uIU/mL (0.360-4.800)
[2025-06-17] MEDS ORDERED: Enoxaparin 40 MG/0.4 ML SYR SC SCH (09:00)
[2025-06-17 13:48] LABS: pH Blood Venous 7.43 (7.34-7.37)
[2025-06-17 16:59] VITALS: BP 143/87
--- NOTE | 2025-06-17 17:15 | NUR ---
SHIFT SUMMARY PT IS A/O TO SELF, PERSON, AND PLACE. PT REMAINS MANIC WITH THOUGHTS OF PARANOIA AND DELUSIONS, HOWEVER WITH IMPROVEMENT WHEN COMPARED TO THIS MORNING. PT STATES THE NURSE IN THE ER MUST HAVE THOUGHT HE WAS "SUPERHUMAN", AND STATES THAT HE THINKS THE PEOPLE IN THE PLAZA ARE COMING FOR HIM. PT ABLE TO RELAY NEEDS AT THIS TIME. IMPULSIVE AT TIMES, BED ALARM ON. SBA. USING URINAL AT BEDSIDE WITH X1 INCONT VOID WHILE SLEEPING.
[2025-06-17 19:34] VITALS: BP 133/92
--- NOTE | 2025-06-18 05:47 | NUR ---
SHIFT SUMMARY PT IS A&OX4, PLEASANT AND COOPERATIVE WITH CARE. PT TESTED POSITIVE FOR COVID LAST SHIFT, RESULTING IN A DELAY IN DISCHARGE. PT USES URINAL INDEPENDENTLY AT BEDSIDE. NO ACUTE CHANGES THIS SHIFT. PT RESTED T/O SHIFT WITH EVEN AND UNLABORED RESPIRATIONS, BED IN THE LOWEST POSITION AND CALL LIGHT WITHIN REACH
--- NOTE | 2025-06-18 05:49 | NUR ---
SHIFT SUMMARY PT IS A&OX4, BUT REMAINS IN A MANIC STATE. PT CONTINUES TO HAVE FLIGHTS OF IDEAS. NO ACUTE CHANGES THIS SHIFT. PT USES URINAL INDEPENDENTLY. PT HAS A TREMOR THAT REPORTED IS WORSE THAN USUAL. DR. CHRISTINA TO CONSULT TODAY TO DISCUSS MEDICATION MANAGEMENT. NO ACUTE CHANGES THIS SHIFT. PT RESTED T/O SHIFT WITH EVEN AND UNLABORED RESPIRATIONS, BED IN THE LOWEST POSITION, AND CALL LIGHT WITHIN REACH.
[2025-06-18 07:50] VITALS: BP 129/95
[2025-06-18 16:50] VITALS: BP 139/90
--- NOTE | 2025-06-18 17:16 | NUR ---
SHIFT SUMMARY PT IS A/OX2-3, CONFUSION TO CURRENT SITUATION AND DATE/TIME AT TIMES. NO ACUTE EVENTS THROUGHOUT THIS SHIFT. MANIC WITH HX OF BIPOLAR WITH IMPROVEMENT WHEN COMPARED TO YESTERDAY. NO SIGNS OF PARANOIA OR DELUSIONS NOTED THIS SHIFT. DR JEFEFRSON AT BEDSIDE THIS EVENING.
[2025-06-18 19:41] VITALS: BP 133/95
[2025-06-19 04:02] VITALS: BP 118/80
--- NOTE | 2025-06-19 06:30 | NUR ---
A/Ox3, INTERMITTENTLY DISORIENTED TO SITUATION. TOLERATED FIRST DOSE OF SEROQUEL WELL. PT DENIES PAIN, NAUSEA, SOB. UP TO RESTROOM WITH SBA, VOIDING X 2. PT MORE REDIRECTABLE/NO FLIGHT OF IDEAS THIS MORNING RELATIVE TO EARLY IN THE SHIFT. SAFETY PRECAUTIONS IN PLACE, CALL LIGHT IN REACH.
[2025-06-19 07:44] VITALS: BP 122/87
[2025-06-19] MEDS ORDERED: Seroquel Xr50 MG PO (11:35)
--- NOTE | 2025-06-19 13:46 | NUR ---
SHIFT / DISCHARGE SUMMARY: PATIENT A+O X4 AND IS ABLE TO MAKE NEEDS KNOWN. THIS NURSE EXPLAINED TO TAKE MEDICATIONS PERSCRIBED AND TO CALL BACK TO MEDICAL FLOOR FOR QUESTIONS. MR. OSHEA SEEMED LIKE HE WAS GETTING CONFUSED ON WHAT SHOULD AND SHOULD NOT BE TAKEN. ONCE EXPLAINING, HE VERBALIZED UNDERSTANDING. MR. OSHEA HAS BEEN COOPERATIVE WITH CARE. IND AMBULATING HALLS AND BEDROOM. LUNGS CLEAR THROUGHOUT, SKIN INTACT AND NO NOTED REDNESS, AND DISCOLORATION. BELONGINGS PROVIDED BACK TO PATIENT UPON DISCHARGE. MEDICATIONS FAXED TO [facility].
== END 2025-06-19 13:45 | disposition home or self-care (01) | DRG 885 ==
LOC: ER 18:48 → ERHOLD 18:49 → MEDS 18:49
PROVIDERS: Family Medicine; Physician Assistant; ADMIT Student in an Organized Health Care Education/Training Program
DX: F31.13 Bipolar disorder, current episode manic without psychotic features, severe (principal); G93.41 Metabolic encephalopathy; R33.9 Retention of urine, unspecified; I10 Essential (primary) hypertension; E11.9 Type 2 diabetes mellitus without complications; F41.9 Anxiety disorder, unspecified; T50.906A Underdosing of unspecified drugs, medicaments and biological substances, initial encounter; Z87.891 Personal history of nicotine dependence; Z91.138 Patient's unintentional underdosing of medication regimen for other reason
CPT/HCPCS: 36415; 51701; 51798; 70450; 71046; 80053; 80320; 82140; 82533; 82803; 82947; 83735; 84100; 84439; 84443; 84481; 85025; 93005; 93010; 96372; 96372-59; 99285-25; A9270; G0378; J1650; J2060

== ENCOUNTER 2025-06-23 07:49 | Observation (INO) | payer OTHER ==
[~2025-06-23] VITALS: Ht 172.7 cm; Wt 77.1 kg
[~2025-06-23 07:49] MED LIST changes: +Seroquel Xr50 MG PO
[2025-06-23 07:55] VITALS: BP 125/90
[2025-06-23] MEDS ORDERED: DEPAKOTE ER250 M2 PO (08:04)
[2025-06-23 09:21] LABS: BASOPHILS ABSOLUTE AUTO 0.10 K/mm3 (0.00-0.23); BASOPHILS PERCENT AUTO 2 % (0-2); EOSINOPHILS ABSOLUTE AUTO 0.06 K/mm3 (0.00-0.68); EOSINOPHILS PERCENT AUTO 1 % (0-6); Hematocrit 40.5 % (37.0-53.0); Hemoglobin 13.6 g/dL (13.5-17.5); IMMATURE GRAN ABSOLUTE AUTO 0.03 K/mm3 (0.00-0.10); IMMATURE GRAN PERCENT AUTO 0 % (0-1); LYMPHOCYTES ABSOLUTE AUTO 1.95 K/mm3 (0.84-5.20); LYMPHOCYTES PERCENT AUTO 29 % (21-46); MONOCYTES ABSOLUTE AUTO 0.65 K/mm3 (0.16-1.47); MONOCYTES PERCENT AUTO 10 % (4-13); Mean Corpuscular HGB Conc 33.6 g/dL (31.5-36.5); Mean Corpuscular Volume 96 fL (80-100); NEUTROPHILS ABSOLUTE AUTO 3.99 K/mm3 (1.96-9.15); NEUTROPHILS PERCENT AUTO 59 % (41-73); NRBC ABSOLUTE 0.00 K/mm3 (0.00-0.02); NRBC Auto 0.0 /100 WBC (0.0-0.2); Platelet Count 187 K/mm3 (150-400); RDW Coefficient Variation 13.0 % (11.7-14.2); RDW Standard Deviation 46.5 fL (35.1-46.3)
[2025-06-23 09:53] LABS: Ethanol (Alcohol), Blood, Med <3 mg/dL; Salicylate <1.7 mg/dL (2.8-20.0)
[2025-06-23 09:54] LABS: Acetaminophen, Random <2.0 ug/mL (10.0-30.0); Alanine Aminotransfer (ALT/SGP 32 U/L (12-78); Albumin, Blood 4.1 g/dL (3.4-5.0); Albumin/Globulin Ratio 1.3 (0.8-1.8); Anion Gap 9 mmol/L (3-11); Aspartate Aminotrans (AST/SGOT 26 U/L (12-37); Bilirubin, Total 0.9 mg/dL (0.1-1.0); Blood Urea Nitrogen 22 mg/dL (8-24); CO2, Blood 26 mmol/L (21-32); Calcium, Blood 9.1 mg/dL (8.5-10.1); Chloride, Blood 106 mmol/L (98-108); Creatinine, Blood 1.00 mg/dL (0.60-1.20); Globulin, Blood 3.1 g/dL (2.2-4.0); Glucose, Blood 92 mg/dL (70-99); Potassium, Blood 4.2 mmol/L (3.5-5.5); Sodium, Blood 137 mmol/L (136-145); Total Protein, Blood 7.2 g/dL (6.4-8.2)
[2025-06-23 10:24] LABS: Source, Urine Clean Catch
[2025-06-23 10:35] LABS: Bilirubin, Urine Neg (Neg); Color, Urine Yellow (P-Yellow); Glucose Qualitative, Urine Neg (Neg); Ketones, Urine 2+ (Neg); Leukocyte Esterase, Urine Neg (Neg); Protein, Urine 1+ (Neg); Specific Gravity, Urine 1.015 (1.003-1.022); Urobilinogen, Urine NORM (Normal)
[2025-06-23 10:50] LABS: Red Blood Cells, Urine 0-2 /hpf (0-2); White Blood Cells, Urine 0-2 /hpf (0-5)
[2025-06-23 11:00] LABS: U Amphetamine Screen Not Detected; U Barbiturate Screen Not Detected; U Benzodiazapine Screen Not Detected; U Buprenorphine Screen Not Detected; U Cannabinoids Screen Not Detected; U Cocaine Screen Not Detected; U Methadone Screen Not Detected; U Methamphetamine Screen Not Detected; U Opiates Screen Not Detected; U Oxycodone Screen Not Detected; U Phencyclidine Screen Not Detected
== END 2025-06-23 21:20 | disposition other institution (70) ==
LOC: ER 07:49 → EOR 07:50
PROVIDERS: ADMIT Student in an Organized Health Care Education/Training Program
DX: F31.2 Bipolar disorder, current episode manic severe with psychotic features (principal); E11.9 Type 2 diabetes mellitus without complications; I10 Essential (primary) hypertension; Z87.891 Personal history of nicotine dependence; Z79.899 Other long term (current) drug therapy
CPT/HCPCS: 80053; 80320; 81001; 85025; A9270; G0480